=== PATIENT | female | born 1980 | race Caucasian/White ===

== ENCOUNTER 2023-07-06 16:27 | Observation (INO) | payer OTHER, SELFPAY ==
[2023-07-06] VITALS (9 sets, daily range): BP systolic 146–193; BP diastolic 80–108; PULSE 87–122; RESP 18–24; TEMP 36.7–37.1; O2SAT 95–98; BMI 32.3; BMI 31.8
--- NOTE | 2023-07-06 16:36 | XR_ITS ---
PROCEDURE INFORMATION: Exam: XR Chest Exam date and time: 07/06/2023 5:01 PM Age: 42 years old Clinical indication: Cough and shortness of breath; Additional info: Cough, SOA TECHNIQUE: Imaging protocol: Radiologic exam of the chest. Views: 2 views. COMPARISON: No relevant prior studies available. FINDINGS: Lungs: No evidence of acute airspace consolidation. No pulmonary edema. Pleural spaces: Possible trace left pleural effusion. No pneumothorax. Heart/Mediastinum: Cardiomediastinal silouhette is within normal limits. Bones/joints: No evidence of acute osseous abnormality. IMPRESSION: Possible trace left pleural effusion. Otherwise, no evidence of cardiopulmonary disease.
--- NOTE | 2023-07-06 16:39 | HMH.EDGENADL ---
Discharge Plan Disposition Patient Disposition: Home, Self-Care Chief Complaint: Shortness of Breath/Dyspnea Prescriptions Prescriptions: No Action No Known Home Medications Referrals Follow up/Referrals: Babak Agustin MD [Primary Care Provider] - See instructions Clinical Impressions Clinical Impression: Viral respiratory illness Discharge ED Provider: Saroj Strong General Adult HPI General Chief complaint: Shortness of Breath/Dyspnea Stated complaint: SOA, lung pain Time Seen by Provider: 07/06/23 16:32 History of Present Illness HPI narrative: Patient is a 42-year-old with no chronic comorbidities who presents emergency department for evaluation of cough, shortness of breath, chest pressure. History is obtained by patient at bedside. Patient was reportedly seen at outside hospital for knee pain last week however since Tuesday night developed shortness of breath, worsening cough, rhinorrhea. Over the last 24 hours she has developed chest pressure causing her to present here for continued evaluation. No other acute complaints at this time. Related Data Home Medications Medication Instructions Recorded Confirmed No Known Home Medications 07/06/23 07/06/23 Allergies Allergy/AdvReac Type Severity Reaction Status Date / Time Macrolide Antibiotics Allergy Severe Difficulty Verified 07/06/23 15:57 Breathing [facility] Disclaimer: The information contained in this section may have been updated after the patient was seen, as this information can be updated by other users. Medical History (Updated 07/06/23 @ 19:28 by Saroj Strong MD) No significant past medical history Surgical History (Updated 07/06/23 @ 15:52 by Brigida Almeida) H/O tubal ligation Family History (Updated 07/06/23 @ 15:52 by Brigida Almeida) Other No significant family history Social History (Updated 07/06/23 @ 15:52 by Brigida Almeida) Smoking Status: Former smoker quit date: 06/05/23 alcohol intake: never current occupational status: unemployed Travel in the last 8 weeks: None ROS Obtained: Yes Systems reviewed as appropriate & no additional complaints except as documented Physical Exam General General appearance: alert and in no apparent distress Head Head exam: atraumatic and normocephalic Eye Eye exam: Present PERRL and EOMI ENT ENT exam: Present mucous membranes moist Neck Neck exam: Present normal inspection Chest Chest inspection: Present normal inspection and symmetric chest wall rise Respiratory Respiratory exam: Present respiratory distress, wheezes and prolonged expiratory phase Cardiovascular Cardiovascular exam: Present regular rate and normal rhythm Abdominal Exam Abdominal exam: Present soft; Absent tenderness Extremities Exam Extremities exam: Present normal inspection Neurological Exam Neurological exam: Present alert Psychiatric Psychiatric exam: Present normal affect Skin Skin exam: Present warm and dry Medical Decision Making Shemar Inquiry Pt receiving controlled substance: No Vital Signs: 07/06/23 17:07 07/06/23 17:08 07/06/23 17:00 Temperature 98.6 F Temperature Source Oral Pulse Rate 103 H 105 H Pulse Rate [Left Radial] 122 H Respiratory Rate 24 Blood Pressure 189/90 H 163/105 H Blood Pressure [Right Arm] 189/90 H Blood Pressure Mean Blood Pressure Mean [Right Arm] 123 Blood Pressure Source Manual Cuff/ Auscultation Blood Pressure Source [Right Arm] Manual Cuff/ Palpation Blood Pressure Position Sitting 02 Sat by Pulse Oximetry 96 98 98 Oxygen Delivery Method Room Air Room Air 07/06/23 17:31 07/06/23 18:00 07/06/23 18:31 Temperature Temperature Source Pulse Rate 103 H 99 H 104 H Pulse Rate [Left Radial] Respiratory Rate Blood Pressure 146/95 H 151/89 H 179/108 H Blood Pressure [Right Arm] Blood Pressure Mean 123 109 136 Blood Pressure Mean [Right Arm] Blood Pressure
--- NOTE | 2023-07-06 17:19 | PC.NURSE ---
requests pt be placed on continuous albuterol for 1 hour notified RT
[2023-07-06 17:32] LABS: Coronavirus 19, PCR Not Detected (NotDetected); Influenza A, PCR Not Detected (NotDetected); Influenza B, PCR Not Detected (NotDetected)
[2023-07-06 17:42] LABS: VBG HCO3 21.4 mmol/L (23-30); VBG Oxygen Saturation 92.4 % (50-70); VBG PCO2 38.5 mmol/L (35-51); VBG PH 7.36 mmol/L (7.31-7.41); VBG PO2 63.8 mmol/L (28-40); VBG Total CO2 22.6 mmol/L (23-27)
[2023-07-06 17:48] LABS: Basophils % 0.3 % (0.1-2.0); Eosinophils # 0.3 K/mm3 (0.0-0.4); Eosinophils % 3.1 % (0.1-12.0); Hematocrit 48.9 % (37.0-47.0); Hemoglobin 15.6 g/dL (12.2-16.2); Lymphocytes # 1.7 K/mm3 (0.7-4.5); Lymphocytes % 18.8 % (10-50); Mean Corpuscular Hemoglobin 26.5 pg (27.0-31.2); Mean Platelet Volume 8.8 fl (7.4-10.4); Monocytes # 0.7 K/mm3 (0.1-1.0); Monocytes % 7.3 % (1.7-9.3); Neutrophils # 6.5 K/mm3 (1.8-7.8); Neutrophils % 70.6 % (37.0-80.0); Platelet Count 188 K/mm3 (142-424); Red Blood Count 5.89 M/mm3 (4.20-5.40); Red Cell Distribution Width 16.9 % (11.5-17.5); White Blood Count 9.2 K/mm3 (4.8-10.8)
[2023-07-06 17:52] LABS: Chloride 107 mmol/L (98-107); Potassium 3.6 mmoL/L (3.5-5.1); Sodium 140 mmol/L (136-145)
[2023-07-06 17:55] LABS: Alanine Aminotransferase 35 U/L (12-78); Albumin Level 4.3 g/dl (3.5-5.0); Albumin/Globulin Ratio 1.2 (1.1-1.8); Alkaline Phosphatase 76 U/L (38-126); Anion Gap 12.6 mEq/L (5-15); Aspartate Amino Transferase 36 U/L (14-36); Bilirubin,Total 0.2 mg/dl (0.2-1.3); Blood Urea Nitrogen 15 mg/dl (7-17); Carbon Dioxide 24 mmol/L (22.0-30.0); Creatinine Clearance Estimated 117 mL/min (50-200); Estimated Glomerular Filt Rate 69 ml/min (>60); GFR (African American) 83 ML/MIN (>60); Globulin 3.5 g/dL (1.3-3.2); Total Protein,Serum 7.8 g/dl (6.3-8.2)
[2023-07-06 17:56] LABS: Calcium 9.1 mg/dl (8.4-10.2); Glucose 143 mg/dl (74-100)
[2023-07-06 18:05] LABS: NT Pro Brain Natriuretic Pep. 588 pg/mL (0-125)
[2023-07-06 18:10] LABS: Troponin I < 0.01 ng/ml (0.00-0.034)
--- NOTE | 2023-07-06 19:20 | PC.NURSE ---
hand off report given to operations supervisor 2nd shift staff
--- NOTE | 2023-07-06 19:57 | ECG_ITS ---
APPROVED REPORT Exam: Resting ECG HR:86 bpm ECG Measurements Heart Rate [address] 136 P 60 QRSd 98 QRS 50 QT 374 T 52 QTc 417 Conclusion SINUS RHYTHM POSSIBLE RIGHT ATRIAL ENLARGEMENT [0.25mV P-WAVE] NONSPECIFIC ST & T-WAVE ABNORMALITY BORDERLINE ECG UNCONFIRMED REPORT Electronically signed by : Bernardino Sommer MD 07/07/2023 17:18:41
--- NOTE | 2023-07-06 20:21 | EXP.HP ---
History of Present Illness *Admission Date: 07/06/23 *Reason for visit:: SOB, cough and CP *History of present illness: This is a 42-year-old with no known chronic comorbidities, history of heavy smoking who quit last month, who presented to the emergency department for evaluation of cough, shortness of breath, chest pressure, started last 7 days. patient was evaluated at PCP offices and recommended to come to the hospital for further work up. History is obtained by patient at bedside. Over the last 24 hours she has developed chest pressure causing her to present here for continued evaluation. No other acute complaints at this time. In the ED her presenting blood pressure was 179/108. She reported noncompliance with previously recommended hypertensive management. Admitted for treatment and management. Her initial ED troponin is negative. Her ECG identified no acute ST-T changes. [facility] Medical History (Updated 07/07/23 @ 07:43 by Marcus Meyer MD) BMI 32.0-32.9,adult Hypertension Medical non-compliance Tobacco dependence Surgical History H/O tubal ligation Family History Other No significant family history Social History (Updated 07/06/23 @ 20:59 by Alma Cline RN) Smoking Status: Former smoker quit date: 06/05/23 alcohol intake: never current occupational status: unemployed Travel in the last 8 weeks: None Review of Systems Review of Systems Review of systems:: pertinent systems reviewed and negative unless documented below Meds Home Medications and Allergies Home Medications Medication Instructions Recorded Confirmed Type No Known Home Medications 07/06/23 07/07/23 History New Prescriptions to Start Prescriptions: Allergies Allergy/AdvReac Type Severity Reaction Status Date / Time Macrolide Antibiotics Allergy Severe Difficulty Verified 07/06/23 15:57 Breathing Exam Data for Last 24 hours Vital signs and Labs for Last 24 Hours: Temp Pulse Resp BP Pulse Ox O2 Del Method 98.6 F 104 H 24 179/108 H 95 Room Air 07/06/23 17:07 07/06/23 18:31 07/06/23 17:07 07/06/23 18:31 07/06/23 18:31 07/06/23 18:31 Laboratory Results - last 24 hr 07/06/23 16:37: VBG pH 7.36, VBG pCO2 38.5, VBG pO2 63.8 H, VBG HCO3 21.4 L, VBG Total CO2 22.6 L, VBG O2 Saturation 92.4 H, VBG Base Excess -4.0 L 07/06/23 17:21: WBC 9.2, RBC 5.89 H, Hgb 15.6, Hct 48.9 H, MCV 83.0, MCH 26.5 L, MCHC 32.0, RDW 16.9, Plt Count 188, MPV 8.8, Neut % (Auto) 70.6, Lymph % (Auto) 18.8, [place] % (Auto) 7.3, Eos % (Auto) 3.1, Baso % (Auto) 0.3, Neut # (Auto) 6.5, Lymph # (Auto) 1.7, [place] # (Auto) 0.7, Eos # (Auto) 0.3, Baso # (Auto) 0.0, Sodium 140, Potassium 3.6, Chloride 107, Carbon Dioxide 24, Anion Gap 12.6, BUN 15, Creatinine 0.90, Estimated Creat Clear 117, Estimated GFR 69, Est GFR ( Amer) 83, Glucose 143 H, Calcium 9.1, Total Bilirubin 0.2, AST 36, ALT 35, Alkaline Phosphatase 76, Troponin I < 0.01, NT-Pro-B Natriuret Pep 588 H, Total Protein 7.8, Albumin 4.3, Globulin 3.5 H, Albumin/Globulin Ratio 1.2, SARS-CoV-2 (PCR) Not detected, Influenza A Untype (PCR) Not detected, Influenza Type B (PCR) Not detected I & O for Last 24 hours: Intake & Output 07/03/23 07/04/23 07/05/23 07/06/23 23:59 23:59 23:59 23:59 Weight 90.718 kg Constitutional Constitutional: no acute distress, chronically ill appearing, disheveled and cooperative *Routine HEENT Exam Head: Present normocephalic and atraumatic Eye: Present EOMI, PERRL and normal accommodation ENT: Present mucous membranes moist *Routine Neck Exam Neck: Present supple, full ROM and trachea midline *Routine Respiratory Exam Respiratory: Present rhonchi, wheezes, normal respiratory effort, able to speak in complete sentences and symmetric chest movement *Routine Cardiovascular Exam Cardiovascular: Present RRR, Normal S1
--- NOTE | 2023-07-06 20:23 | PC.NURSE ---
notified house worker of admission
--- NOTE | 2023-07-06 20:24 | PC.NURSE ---
OBSERVATION ADMISSION TO 206 WITH DX OF VIRAL PNEUMONIA TO SERVICE OF HOSPITALIST.
--- NOTE | 2023-07-06 20:29 | PC.NURSE ---
pt states she is tired of laying here in this hard bed under this bright light and she aint gonna do it for much longer. RN advised bed is assigned and report will be called soon. RN shut the lights off and readjusted the bed for patient.
--- NOTE | 2023-07-06 20:33 | PC.NURSE ---
called report to jose m cantu on 2nd floor and answered all questions
[2023-07-06 20:40] LABS: Troponin I < 0.01 ng/ml (0.00-0.034)
--- NOTE | 2023-07-06 20:55 | PC.NURSE ---
Patient arrived to floor via wheelchair at 20:45.
[2023-07-06 23:22] LABS: INR 0.94 (0.9-1.1); Prothrombin Time 10.2 seconds (10.1-12.5)
[2023-07-06 23:40] LABS: Troponin I < 0.01 ng/ml (0.00-0.034)
[2023-07-07] VITALS: BP 150/71; PULSE 85; RESP 20; TEMP 36.9; O2SAT 93
[2023-07-07 04:00] VITALS: BP 134/75; PULSE 80; RESP 18; TEMP 36.8; O2SAT 91
--- NOTE | 2023-07-07 06:00 | PC.NURSE ---
Patient is A/O x3. Patient has slept well this shift. Patient has c/o of headache x2. Medicated per MAR with relief. Patient remains on RA with O2 sats 91-98%.
--- NOTE | 2023-07-07 07:54 | EXP.DC.SUM ---
General Admission date:: 07/06/23 Discharge date: 07/07/23 HPI HPI HPI: This is a 42-year-old with no known chronic comorbidities, history of heavy smoking who quit last month, who presented to the emergency department for evaluation of cough, shortness of breath, chest pressure, started last 7 days. patient was evaluated at PCP offices and recommended to come to the hospital for further work up. History is obtained by patient at bedside. Over the last 24 hours she has developed chest pressure causing her to present here for continued evaluation. No other acute complaints at this time. In the ED her presenting blood pressure was 179/108. She reported noncompliance with previously recommended hypertensive management. Admitted for treatment and management. Her initial ED troponin is negative. Her ECG identified no acute ST-T changes. Hospital Course Hospital Course Hospital Course: This is a 42-year-old with history of hypertension and medical noncompliance, history of heavy smoking who quit last month, who presented to the emergency department for evaluation of cough, shortness of breath, chest pressure, started last 7 days. On arrival patient was Saturating appropriately on room air with cough and chest pain/pressure. Chest Xray was done. showing trace of left pleural effusion. troponin are negative, WBC are normal. BNP is elevated with possible rigth atrial enlargement. Patient was placed on neb for wheezing and IV solumedrol was given. Problems addressed as follows: Hypertensive urgency Hypertension Routine blood pressure monitoring Telemetry monitoring Loop diuretic therapy Centrally acting agent ED ECG reviewed Echocardiogram ED BNP noted Trending labs and inflammatory markers Viral URI Pulse oximetry monitoring Oxygen therapy to maintain appropriate oxygen saturations Currently oxygenating appropriately on room air ED chest x-ray reviewed Supportive care with inhalers BMI 32/OHS/HALLIE/COPD overlap History of tobacco dependence Tobacco cessation education Nicotine replacement therapy Nutrition education Calorie appropriate diet Outpatient evaluation for NIPPV therapy with concerns of HALLIE VTE prophylaxis: Lovenox CODE STATUS: Full code The morning after admission the patient voiced disappointment having her morning laboratory studies done so early. She became belligerent with profuse profanity toward nursing staff. She identified wanting to leave. Nursing staff approached her for AMA documentation and she refused to comply and threw the pen at the nurse. I was accompanied by nursing staff to discuss the patient's desire to leave AGAINST MEDICAL ADVICE. supervisor rose grading was present as well. The patient is not intoxicated. She is free from distracting pain and appears to have intact insight, judgment and reason during my evaluation. In my medical opinion the patient has the capacity to make decisions. The patient is also not under any duress to leave the hospital. In this scenario would be battery to subject the patient to treatment against their will. I have voiced my concerns for the patient's health given that a full evaluation and treatment have not occurred. I have discussed the need for continued evaluation and treatment secondary to her diagnoses that present a risk of or morbidity. Risks including but not limited to stroke, heart attack, permanent disability, prolonged hospitalization, prolonged illness and were discussed. The patient insisted on leaving AMA. She voiced taking responsibility for her decision making. Because I have been unable to convince the patient to stay, I offered her the opportunity to ask questions about her condition and to return to the ED with any concerns. I emphasized that leaving AGAINST MEDICAL ADVICE does not preclude returning to the ED for further evaluation. I strongly encouraged the patient to return to any ED at any time particularly with worsening symptoms.
== END 2023-07-07 07:10 | disposition left against medical advice (07) ==
LOC: ER 19:28 → 2ND 20:25
PROVIDERS: Nurse Practitioner Family; Admitting Provider Family Medicine; Emergency Provider Emergency Medicine; PCP Family Medicine; Visit Provider Family Medicine
DX: J18.9 Pneumonia, unspecified organism (principal); I16.0 Hypertensive urgency; I10 Essential (primary) hypertension; I51.7 Cardiomegaly; J90 Pleural effusion, not elsewhere classified; J98.8 Other specified respiratory disorders; B97.89 Other viral agents as the cause of diseases classified elsewhere; Z87.891 Personal history of nicotine dependence; J44.9 Chronic obstructive pulmonary disease, unspecified
CPT/HCPCS: 36415; 71046; 80053; 82803; 83880; 84484; 85025; 85610; 87636; 93005; 93306; 94640; 99285; G0378

== ENCOUNTER 2024-11-12 20:46 | Observation (INO) | payer OTHER, SELFPAY ==
[2024-11-12] VITALS (8 sets, daily range): BP systolic 153–207; BP diastolic 99–119; PULSE 91–113; RESP 16–28; TEMP 37–37.2; O2SAT 95–100; BMI 29.8; BMI 30.9
--- NOTE | 2024-11-12 20:44 | CT_ITS ---
PROCEDURE INFORMATION: Exam: CT Head Without Contrast Exam date and time: 11/12/2024 8:49 PM Age: 43 years old Clinical indication: Stroke-like symptoms; Other: Stroke alert TECHNIQUE: Imaging protocol: Computed tomography of the head without contrast. Radiation optimization: All CT scans at this facility use at least one of these dose optimization techniques: automated exposure control; mA and/or kV adjustment per patient size (includes targeted exams where dose is matched to clinical indication); or iterative reconstruction. Other technique: STROKE PROTOCOL was implemented. COMPARISON: CT HEAD/BRAIN WO CON 11/12/2024 8:49 PM FINDINGS: Brain: Old tiny lacunar pattern infarct in the bilateral anterior limb of internal capsule. See image number 37 of series 3. Brain has an otherwise normal noncontrast CT appearance. There is no regional hypoattenuation or intra/extra-axial hemorrhage. Cerebral ventricles: No ventriculomegaly. Paranasal sinuses: Visualized sinuses are unremarkable. No fluid levels. Mastoid air cells: Visualized mastoid air cells are well aerated. Bones: Unremarkable. No acute fracture. Soft tissues: Unremarkable. IMPRESSION: 1. 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 Unusual for a patient of this age. 2. No acute intracranial hemorrhage or mass-effect. ASSESSMENT: ASPECTS ([place] Stroke Program Early CT Score) is 10.
--- NOTE | 2024-11-12 20:45 | CT_ITS ---
PROCEDURE INFORMATION: Exam: CTA Head With Contrast, Arteriography Exam date and time: 11/12/2024 8:51 PM Age: 43 years old Clinical indication: Stroke-like symptoms; Other: Stroke alert TECHNIQUE: Imaging protocol: Computed tomographic angiography of the head with contrast. Exam focused on the arteries. 3D rendering (Not supervised by radiologist): MIP and/or 3D reconstructed images were created by the technologist. Radiation optimization: All CT scans at this facility use at least one of these dose optimization techniques: automated exposure control; mA and/or kV adjustment per patient size (includes targeted exams where dose is matched to clinical indication); or iterative reconstruction. Contrast material: ISOVUE; Contrast volume: 80 ml; Contrast route: INTRAVENOUS (IV); COMPARISON: CT HEAD/BRAIN WO CON 11/12/2024 8:49 PM FINDINGS: ANTERIOR CIRCULATION: Right internal carotid artery: There is a diffuse caliber change of the bilateral distal internal carotid arteries as they pass through the petrous and cavernous segments dens subsequently turned a more normal caliber at the bilateral ICA terminus. This finding is most prominent at the proximal cavernous segment of both distal internal carotid arteries on axial plane images 380-397 of series 7. At the narrowest point, the estimated diameter of the bilateral ICA is 2.5 mm. Right middle cerebral artery: No occlusion or significant stenosis. No aneurysm. Right anterior cerebral artery: No occlusion or significant stenosis. No aneurysm. Left internal carotid artery: There is a diffuse caliber change of the bilateral distal internal carotid arteries as they pass through the petrous and cavernous segments dens subsequently turned a more normal caliber at the bilateral ICA terminus. This finding is most prominent at the proximal cavernous segment of both distal internal carotid arteries on axial plane images 380-397 of series 7. At the narrowest point, the estimated diameter of the bilateral ICA is 2.5 mm. Left middle cerebral artery: No occlusion or significant stenosis. No aneurysm. Left anterior cerebral artery: No occlusion or significant stenosis. No aneurysm. POSTERIOR CIRCULATION: Right vertebral artery: No occlusion or significant stenosis. No aneurysm. Left vertebral artery: No occlusion or significant stenosis. No aneurysm. Basilar artery: No occlusion or significant stenosis. No aneurysm. Right posterior cerebral artery: No occlusion or significant stenosis. No aneurysm. Left posterior cerebral artery: No occlusion or significant stenosis. No aneurysm. Brain: No definite mass, mass effect, or midline shift. Cerebral ventricles: No ventriculomegaly. Bones/joints: Unremarkable. No acute fracture. Soft tissues: Unremarkable. IMPRESSION: 1. No large vessel occlusion. 2. Diffuse narrowing of the petrous and cavernous segments of the bilateral ICA. This finding can be seen with diffuse arterial spasm or vasculitis. MRI of the brain should be considered to evaluate the brain further.
--- NOTE | 2024-11-12 20:45 | CT_ITS ---
PROCEDURE INFORMATION: Exam: CTA Neck With Contrast Exam date and time: 11/12/2024 8:51 PM Age: 43 years old Clinical indication: Stroke-like symptoms; Other: Stroke alert TECHNIQUE: Imaging protocol: Computed tomographic angiography of the neck with contrast. Exam focused on the cervical segments of the vasculature. 3D rendering (Not supervised by radiologist): MIP and/or 3D reconstructed images were created by the technologist. Radiation optimization: All CT scans at this facility use at least one of these dose optimization techniques: automated exposure control; mA and/or kV adjustment per patient size (includes targeted exams where dose is matched to clinical indication); or iterative reconstruction. Contrast material: ISOVUE; Contrast volume: 80 ml; Contrast route: INTRAVENOUS (IV); COMPARISON: CT ANGIO HEAD 11/12/2024 8:51 PM FINDINGS: Right common carotid artery: No stenosis. No dissection or occlusion. Right internal carotid artery: No stenosis of the extracranial segment. No dissection or occlusion. Right external carotid artery: No occlusion or stenosis of the origin. Left common carotid artery: No stenosis. No dissection or occlusion. Left internal carotid artery: No stenosis of the extracranial segment. No dissection or occlusion. Left external carotid artery: No occlusion or stenosis of the origin. Right vertebral artery: No stenosis. No dissection or occlusion. Left vertebral artery: No stenosis. No dissection or occlusion. Soft tissues: Normal. No significant soft tissue swelling. Bones/joints: No acute fracture. Other findings: Moderate tortuosity of the bilateral internal carotid arteries is seen at the skull base. IMPRESSION: No dissection, stenosis, occlusion or embolus. Also see CTA brain report. REFERENCES: NASCET CRITERIA. The degree of stenosis in the cervical segment of the internal carotid artery is based on NASCET criteria. Normal is no stenosis. Mild is less than 50% stenosis. Moderate is 50-69% stenosis. Severe is 70% to 99% stenosis. Total occlusion is no detectable patent lumen.
--- NOTE | 2024-11-12 20:45 | PC.NURSE ---
Pt arrived via EMS. Straight to CT per Code Stroke. Unable to obtain IV access X2, Dr. Mccabe obtained IV access via US. 20 LAC. This RN, Geraldine RN, Dr. Mccabe, [facility], and RT's bedside.
--- NOTE | 2024-11-12 20:49 | HMH.EDGENADL ---
Discharge Plan Disposition Patient Disposition: Admitted Chief Complaint: Neuro Symptoms/Deficit Prescriptions Prescriptions: No Action No Known Home Medications Clinical Impressions Clinical Impression: Paresthesias, Headache Print Language Print Language: Japanese Discharge ED Provider: Corry Mccabe General Adult HPI General Chief complaint: Neuro Symptoms/Deficit Stated complaint: numbness Time Seen by Provider: 11/12/24 20:46 History of Present Illness HPI narrative: Patient is a 43-year-old female brought in by EMS today for possible stroke. Last known normal was 1929 patient stated that she started having tingling on the left side of her body just did not feel right and while she was with EMS they stated that she is she was having a difficult time talking. Glucose was normal she was hypertensive and tachycardic en route. Patient brought straight to the CT scanner as a stroke alert prehospital. Related Data Home Medications ?Medication ?Instructions ?Recorded ?Confirmed No Known Home Medications 07/06/23 11/12/24 Allergies Allergy/AdvReac Type Severity Reaction Status Date / Time Macrolide Antibiotics Allergy Severe Difficulty Verified 07/06/23 15:57 Breathing [facility] Disclaimer: The information contained in this section may have been updated after the patient was seen, as this information can be updated by other users. Medical History (Updated 11/12/24 @ 22:15 by Corry Mccabe MD) Medical non-compliance BMI 32.0-32.9,adult Tobacco dependence Hypertension Surgical History H/O tubal ligation Family History Other No significant family history Social History (Updated 07/06/23 @ 20:59 by Alma Cline RN) Smoking Status: Current every day smoker alcohol intake: never current occupational status: unemployed Travel in the last 8 weeks: None Have you lived/traveled outside US in past 30 days?: No Contact w/someone who lives/traveled outside US past 30 days?: No Exposure to someone with infectious disease in past 14 days?: No Do you have a fever (greater than 100.4 F or 38 C)?: No Have you tested positive for COVID-19: No Exposed to someone with COVID-19 in past 14 days?: No Do you have a sore throat?: No Do you have a cough?: No Do you have any weakness?: No Do you have any diarrhea?: No Are you experiencing any unusual bleeding?: No Do you have any muscle aches/pain?: No Do you have any abdominal pain?: No Are you experiencing loss of taste or smell?: No Other Medical History Have you received the Flu Vaccine for this season: No Have you received the Pneumonia Vaccine: No ROS Obtained: Yes All systems reviewed & no additional complaints except as documented Physical Exam General General appearance: alert and in no apparent distress Respiratory Respiratory exam: Present normal lung sounds bilaterally Cardiovascular Cardiovascular exam: Present regular rate Neurological Exam Neurological exam: Present alert, oriented X3, CN II-XII intact and motor sensory deficit (Patient has 5 out of 5 strength in left upper and left lower extremity subjectively complains of abnormal sensation in the left side of her body) Medical Decision Making Medical Records Screening: Per USPSTF and CDC recommendations, given the prevalence of disease in our region, it is our hospital?s policy to screen for HIV and viral Hepatitis for all patients aged 18 and over and those with ongoing risk factors. Shemar Inquiry Pt receiving controlled substance: No Vital Signs: 11/12/24 20:46 11/12/24 20:59 11/12/24 21:00 Temperature 98.9 F Temperature Source Oral Pulse Rate 104 H 104 H Pulse Rate [Left] 113 H Respiratory Rate 28 H Blood Pressure 198/119 H 207/106 H Blood Pressure [Right Arm] 207/106 H Blood Pressure Mean [Right Arm] 139 02 Sat by Pulse Oximetry 100 98 99 Oxygen Delivery Method Room Air Room Air Room Air 11/12/24 21:30 11/12/24 22:00 Temperature Temperature Source Pulse Rate 91 H 101 H Pulse Rate [Left] Respiratory Rate Blood Pressure 180/110 H 162/112 H Blood Pressure [Right Arm] Blood Pressure Mean [Right Arm] 02 Sat by Pulse Oximetry 95 99 Oxygen Delivery Method Room Air Lab Data Lab results reviewed: Yes I reviewed the patient's lab results. Lab Results 11/12/24 20:40: C-Reactive Protein 0.5 11/12/24 20:47: WBC 8.1, RBC 4.75, Hgb 12.4, Hct 38.8, MCV 81.7, MCH 26.1 L, MCHC 32.0, RDW 14.7, Plt Count 287, MPV 10.6 H, Neut % (Auto) 70.2, Lymph % (Auto) 21.3, Schuyler % (Auto) 6.0, Eos % (Auto) 2.2, Baso % (Auto) 0.1, Neut # (Auto) 5.7, Lymph # (Auto) 1.7, Schuyler # (Auto) 0.5, Eos # (Auto) 0.2, Baso # (Auto) 0.0, PT 9.0 L, INR 0.80 L, APTT 23.3, Sodium 138, Potassium 4.3, Chloride 104, Carbon Dioxide 26, Anion Gap 12.3, BUN 17, Creatinine 1.00, Estimated Creat Clear 96, Estimated GFR 61, Est GFR ( Amer) 73, Glucose 96, Calcium 9.3, Total Bilirubin 0.3, AST 41 H, ALT 38, Alkaline Phosphatase 92, Troponin I < 0.01, Total Protein 7.3, Albumin 5.2 H, Globulin 2.1, Albumin/Globulin Ratio 2.5 H 11/12/24 20:47 11/12/24 20:47 Orders (Tests/Meds): ED MEDICATIONS Generic Name Dose Route Start Last Admin Trade Name Freq PRN Reason Stop Dose Admin Sodium Chloride 10 ml 11/12/24 20:51 11/12/24 20:53 Sodium Chloride 0.9% 10ml Syr (Rad Only) IV 12/12/24 20:50 10 ml NEEDED PRN Administration Maintain IV Site Discontinued Medications Generic Name Dose Route Start Last Admin Trade Name Freq PRN Reason Stop Dose Admin Acetaminophen 1,000 mg 11/12/24 21:10 11/12/24 21:28 Acetaminophen 1,000mg/100ml Vial IV 11/12/24 21:11 1,000 mg ONCE ONE Administration Diphenhydramine HCl 25 mg 11/12/24 21:10 11/12/24 21:28 Diphenhydramine 50mg/Ml Vial IV 11/12/24 21:11 25 mg ONCE ONE Administration Sodium Chloride 1,000 mls @ 999 mls/hr 11/12/24 21:00 11/12/24 21:10 Sod Chlor 0.9% 1000ml Bag IV 11/12/24 22:00 999 mls/hr .Q1H1M JEFF Administration Iopamidol 80 ml 11/12/24 20:51 11/12/24 20:53 Iopamidol-370 (76%);100ml Bottle IV 11/12/24 20:52 80 ml ONCE ONE Administration Prochlorperazine Edisylate 10 mg 11/12/24 21:10 11/12/24 21:28 Prochlorperazine 10mg/2ml Vial IV 11/12/24 21:11 10 mg ONCE ONE Administration Sodium Chloride 50 ml 11/12/24 20:51 11/12/24 20:53 0.9 % Sodium Chloride 50 Ml Vial IV 11/12/24 20:52 50 ml ONCE ONE Administration ORDERS Category Date Time Status CT angio head Stat Cat Scan 11/12/24 20:[address] angio neck Stat Cat Scan 11/12/24 20:[address] head/brain wo con Stat Cat Scan 11/12/24 20:44 Completed CBC w/Auto Diff [Complete Blood Count Auto Diff] Stat Lab 11/12/24 20:47 Completed CMP [Comprehensive Metabolic Panel] Stat Lab 11/12/24 20:47 Completed CRP [C-Reactive Protein] Stat Lab 11/12/24 20:40 Completed ESR [Erythrocyte Sedimentation Rate] Stat Lab 11/12/24 20:47 Received HIV Combo Routine Lab 11/12/24 20:47 Received Hepatitis C Ab Qual. W/ RFX Routine Lab 11/12/24 20:47 Received PT/PTT Stat Lab 11/12/24 20:47 Completed Trop I [Troponin I] Stat Lab 11/12/24 20:47 Completed Troponin I Q3H Lab 11/12/24 23:47 Ordered Troponin I Q3H Lab 11/13/24 02:47 Ordered UA [Urinalysis and Microscopic] Stat Lab 11/12/24 21:13 Received UDS [Drug Screen,Urine] Stat Lab 11/12/24 21:13 Received Medical Decision Narrative: 43-year-old female with above history and physical she appears very anxious initially was behaving as though she was not able to speak well but then was very articulate with conversation with us in particular telling us specifically that she needed to have an ultrasound-guided IV. Also initially she told EMS that she was having difficult time moving her left upper extremity but her motor exam on my left upper left lower extremity are normal. It is possible these were transient in nature but overall her exam is nonfocal objectively she does have some subjective left-sided sensory abnormalities. I am leaning toward this being panic or anxiety at the moment but cannot rule out TIA/stroke. NIH stroke scale would be 1 right now. Will reassess after initial CT scans are performed. Reassessment 9:[address] scans were performed which I personally interpreted I do not see any evidence of a subarachnoid hemorrhage or intraparenchymal hemorrhage space-occupying lesion or obvious stroke. Radiology read pending. Serial neurologic assessments at this point are normal. Patient does still complain of a headache headache medicines have been ordered at this point. She says her numbness is essentially gone at this point. Possible this is a complex migraine. Will reassess. She is not a candidate for thrombectomy or tPA at this point. Reassessment 1014 CT scans were performed there is some areas of diffuse narrowing but no flow-limiting lesions or obvious stroke there is some old lacunar infarct potentially but no acute ischemic abnormality noted on CT scans per radiology read. There is a concern for possible vasculitis therefore inflammatory markers have been sent and patient will need an MRI. Initially I spoke to hospital medicine who did not feel comfortable keeping the patient here and I called multiple healthcare systems including [facility] all of whom are full. Given the fact that she does not need any neurologic intervention including LVO or tPA [facility] likely would not have excepted this as well hospital medicine called me back and said that they would be happy to keep the patient to get an MRI here patient is aware and agreeable to this plan. Procedures Miscellaneous Procedure Procedure Performed: Ultrasound-guided IV Indication difficult IV access Patient was placed in the supine position was prepped and draped in sterile fashion. 20-gauge 48 mm Angiocath was used with axial and long axis planes on the ultrasound under direct visual guidance. The tip of the needle was observed being inserted directly into the vein itself and catheter was advanced under direct guidance. No significant complications. Critical Care Critical Care Time Critical Care Time: Yes Attestation: On 11/12/24, the high probability of a clinically significant, sudden or life threatening deterioration of the following system(s) required my full and direct attention, intervention and personal management. The time I documented below is in addition to time spent performing reported procedures but includes the following listed in this critical care notation. Total Time Total Critical Care Time: 35
[2024-11-12 20:53] LABS: Basophils % 0.1 % (0.1-2.0); Eosinophils # 0.2 K/mm3 (0.0-0.4); Eosinophils % 2.2 % (0.1-12.0); Hematocrit 38.8 % (37.0-47.0); Hemoglobin 12.4 g/dL (12.2-16.2); Lymphocytes # 1.7 K/mm3 (0.7-4.5); Lymphocytes % 21.3 % (10-50); Mean Corpuscular Hemoglobin 26.1 pg (27.0-31.2); Mean Corpuscular Volume 81.7 fl (81-99); Mean Platelet Volume 10.6 fl (7.4-10.4); Monocytes # 0.5 K/mm3 (0.1-1.0); Neutrophils # 5.7 K/mm3 (1.8-7.8); Neutrophils % 70.2 % (37.0-80.0); Platelet Count 287 K/mm3 (142-424); Red Blood Count 4.75 M/mm3 (4.20-5.40); Red Cell Distribution Width 14.7 % (11.5-17.5); White Blood Count 8.1 K/mm3 (4.8-10.8)
[2024-11-12] MEDS: IOPAMIDOL-370 (76%);100ML BOTTLE 80 ML IV (20:53)
[2024-11-12] MEDS: SODIUM CHLORIDE 0.9% 10ML SYR (RAD ONLY) 10 ML IV (20:53)
[2024-11-12] MEDS: 0.9 % SODIUM CHLORIDE 50 ML VIAL IV (20:53)
--- NOTE | 2024-11-12 20:58 | ECG_ITS ---
APPROVED REPORT Exam: Resting ECG HR:110 bpm ECG Measurements Heart Rate 110 AXES MA 128 P 76 QRSd 102 QRS 81 QT 348 T 1 QTc [address] DEVIATION AND MODERATE T-WAVE ABNORMALITY, CONSIDER INFERIOR ISCHEMIA [-0.1+ mV T-WAVE IN II/aVF] ABNORMAL ECG UNCONFIRMED REPORT Electronically signed by : Zen Mccabe, 11/12/2024 23:27:14
[2024-11-12 20:59] LABS: Albumin Level 5.2 g/dl (3.5-5.0); Chloride 104 mmol/L (98-107)
[2024-11-12 21:00] LABS: Potassium 4.3 mmoL/L (3.5-5.1); Sodium 138 mmol/L (136-145)
[2024-11-12 21:02] LABS: Blood Urea Nitrogen 17 mg/dl (7-17); Creatinine Clearance Estimated 96 mL/min (50-200); Estimated Glomerular Filt Rate 61 ml/min (>60); GFR (African American) 73 ML/MIN (>60)
[2024-11-12 21:03] LABS: Alanine Aminotransferase 38 U/L (12-78); Albumin/Globulin Ratio 2.5 (1.1-1.8); Alkaline Phosphatase 92 U/L (38-126); Anion Gap 12.3 mEq/L (5-15); Aspartate Amino Transferase 41 U/L (14-36); Bilirubin,Total 0.3 mg/dl (0.2-1.3); Calcium 9.3 mg/dl (8.4-10.2); Carbon Dioxide 26 mmol/L (22.0-30.0); Globulin 2.1 g/dL (1.3-3.2); Glucose 96 mg/dl (74-100); Total Protein,Serum 7.3 g/dl (6.3-8.2)
[2024-11-12] MEDS: 0.9 % SODIUM CHLORIDE 1000ML 1,000 ML 999 ML IV (21:10)
[2024-11-12 21:16] LABS: Troponin I < 0.01 ng/ml (0.00-0.034)
[2024-11-12 21:22] LABS: Microscopic, Urine URINE MICROSCOPIC (MICROSCOPIC)
[2024-11-12 21:23] LABS: Activated Partial Thrombo Time 23.3 seconds (22.5-28.5)
[2024-11-12] MEDS: PROCHLORPERAZINE 10MG/2ML VIAL 10 MG IV (21:28)
[2024-11-12] MEDS: diphenhydrAMINE 50MG/ML VIAL 25 MG IV (21:28)
[2024-11-12] MEDS: ACETAMINOPHEN 1,000MG/100ML VIAL 1000 MG IV (21:28)
--- NOTE | 2024-11-12 21:37 | PC.NURSE ---
attempted to call [facility], they are on divert and cannot take any pts at this time.
[2024-11-12 21:49] LABS: C-Reactive Protein 0.5 mg/L (0-4)
[2024-11-12 21:51] LABS: Appearance,Urine CLEAR (Clear); Bilirubin,Urine Negative (Negative); Blood, Urine Negative (Negative); Color,Urine YELLOW (Yellow); Glucose,Urine (UA) Negative (Negative); Ketones,Urine Negative (Negative); Leukocyte Esterase,Urine Negative (Negative); Nitrate,Urine Negative (Negative); Protein,Urine Negative (Negative); Specific Gravity, Urine 1.015 (1.005-1.030); Urobilinogen,Urine 0.2 EU/dl (0.2)
[2024-11-12 22:15] LABS: Amphetamine/Metha Screen,Urine Negative ng/ml (<1000)
[2024-11-12 22:16] LABS: Barbiturates Screen,Urine Negative ng/ml (<200); Benzodiazepines Screen,Urine Negative ng/ml (<200)
--- NOTE | 2024-11-12 22:16 | PC.NURSE ---
Tried to call report, no answer.
[2024-11-12 22:17] LABS: Cannabinoid Screen,Urine Positive ng/ml (<50)
[2024-11-12 22:19] LABS: Phencyclidine Screen,Urine Negative ng/ml (<25)
[2024-11-12 22:22] LABS: Cocaine Screen,Urine Negative ng/ml (<300); Methadone Screen,Urine Negative ng/ml (<300)
[2024-11-12 22:23] LABS: Opiate Screen,Urine Negative ng/ml (<300)
[2024-11-12 22:26] LABS: HIV Combo NEGATIVE (Negative)
--- NOTE | 2024-11-12 22:26 | PC.NURSE ---
Report called to [facility]
[2024-11-12 22:35] LABS: Hepatitis C Ab Qual. W/ RFX NEGATIVE (Negative)
--- NOTE | 2024-11-12 22:45 | PC.NURSE ---
patient on floor at [id number]
[2024-11-12 22:51] LABS: Bacteria,Urine 1+ /lpf
[2024-11-12 23:00] LABS: Erythrocyte Sedimentation Rate 11 mm/hr (0-20)
[2024-11-13] VITALS: BP 183/96; PULSE 73; RESP 16; TEMP 36.7; O2SAT 96
[2024-11-13 00:34] LABS: Troponin I < 0.01 ng/ml (0.00-0.034)
--- NOTE | 2024-11-13 01:36 | P.HP_ITS ---
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 She was last known to be at her baseline at 19:30 while playing with her grandson when she suddenly experienced complete left-sided numbness and weakness. She attempted to speak but was unable to form words, which caused significant distress. She describes an episode of ?the worst headache of my life? occurring at the same time as her neurological symptoms. EMS was activated, and en route, she was hypertensive and tachycardic, but her blood glucose was normal. By the time she arrived at the emergency department, her symptoms had significantly improved. On initial examination, she was alert and oriented, speaking normally, and had full strength in all extremities; however, she continued to report residual left-sided paresthesia and a mild headache. NIH Stroke Scale at presentation was 1. Given the transient nature of her symptoms, a stroke alert was activated, and the patient was taken directly to CT imaging. CT head was performed emergently and showed no evidence of acute ischemic stroke, hemorrhage, or mass effect, although there were possible old lacunar infarcts. Subsequent CT angiography of the head and neck showed areas of diffuse narrowing but no significant flow-limiting lesions. Laboratory workup revealed a normal white blood cell count of 8.1, slightly elevated AST at 41, and a low INR of 0.80, but otherwise unremarkable findings, including a CRP of 0.5. Serial neurological assessments have remained normal, though she continues to report mild headache and some residual left-sided sensory changes. Given the transient nature of her symptoms and absence of radiologic evidence of large vessel occlusion, she is not a candidate for thrombolytics or thrombectomy. Differential considerations include transient ischemic attack, complex migraine, or a vasculitic process, given her history of rheumatoid arthritis and imaging findings suggestive of diffuse vascular narrowing. Inflammatory markers have been ordered, and an MRI is planned for further evaluation. [facility] Disclaimer: The information contained in this section may have been updated after the patient was seen, as this information can be updated by other users. Medical History Rheumatoid arthritis Medical non-compliance BMI 32.0-32.9,adult Tobacco dependence Hypertension Surgical History H/O tubal ligation Family History Other No significant family history Social History Smoking Status: Current every day smoker alcohol intake: never current occupational status: unemployed Travel in the last 8 weeks: None Have you lived/traveled outside US in past 30 days?: No Contact w/someone who lives/traveled outside US past 30 days?: No Exposure to someone with infectious disease in past 14 days?: No Do you have a fever (greater than 100.4 F or 38 C)?: No Have you tested positive for COVID-19: No Exposed to someone with COVID-19 in past 14 days?: No Do you have a sore throat?: No Do you have a cough?: No Do you have any weakness?: No Do you have any diarrhea?: No Are you experiencing any unusual bleeding?: No Do you have any muscle aches/pain?: No Do you have any abdominal pain?: No Are you experiencing loss of taste or smell?: No Other Medical History Have you received the Flu Vaccine for this season: No Have you received the Pneumonia Vaccine: No Review of Systems Review of Systems Review of systems (narrative): 13 point review of systems negative outside HPI Meds Home Medications and Allergies Home Medications ?Medication ?Instructions ?Recorded ?Confirmed ?Type irbesartan 75 mg tablet 75 mg PO DAILY 30 days #30 tabs 11/13/24 Rx New Prescriptions to Start Prescriptions: bingesZen Howard Allergies Allergy/AdvReac Type Severity Reaction Status Date / Time Macrolide Antibiotics Allergy Severe Difficulty Verified 07/06/23 15:57 Breathing Exam Data for Last 24 hours Vital signs and Labs for Last 24 Hours: Temp Pulse Resp BP Pulse Ox O2 Del Method 98.6 F 98 H 24 153/99 H 98 Room Air 11/12/24 23:18 11/12/24 23:18 11/12/24 23:18 11/12/24 23:18 11/12/24 23:10 11/12/24 23:18 Laboratory Results - last 24 hr 11/12/24 20:40: C-Reactive Protein 0.5 11/12/24 20:47: WBC 8.1, RBC 4.75, Hgb 12.4, Hct 38.8, MCV 81.7, MCH 26.1 L, MCHC 32.0, RDW 14.7, Plt Count 287, MPV 10.6 H, Neut % (Auto) 70.2, Lymph % (Auto) 21.3, Grant % (Auto) 6.0, Eos % (Auto) 2.2, Baso % (Auto) 0.1, Neut # (Auto) 5.7, Lymph # (Auto) 1.7, Grant # (Auto) 0.5, Eos # (Auto) 0.2, Baso # (Auto) 0.0, ESR 11, PT 9.0 L, INR 0.80 L, APTT 23.3, Sodium 138, Potassium 4.3, Chloride 104, Carbon Dioxide 26, Anion Gap 12.3, BUN 17, Creatinine 1.00, Estimated Creat Clear 96, Estimated GFR 61, Est GFR ( Amer) 73, Glucose 96, Calcium 9.3, Total Bilirubin 0.3, AST 41 H, ALT 38, Alkaline Phosphatase 92, Troponin I < 0.01, Total Protein 7.3, Albumin 5.2 H, Globulin 2.1, Albumin/Globulin Ratio 2.5 H, HCV Ab DONNA w/Rflx PCR Qn Negative, HIV Ag/Ab Combo Qual Negative 11/12/24 21:13: Urine Color Yellow, Urine Appearance Clear, Urine pH 7.0, Ur Specific [place] 1.015, Urine Protein Negative, Urine Glucose (UA) Negative, Urine Ketones Negative, Urine Blood Negative, Urine Nitrate Negative, Urine Bilirubin Negative, Urine Urobilinogen 0.2, Ur Leukocyte Esterase Negative, Urine WBC 3-5, Ur Squamous Epith Cells 5-10, Urine Bacteria 1+, Urine Opiates Screen Negative, Urine Methadone Screen Negative, Ur Barbituates Screen Negative, Ur Phencyclidine Scrn Negative, Ur Amphetamines Screen Negative, U Benzodiazepines Scrn Negative, Urine Cocaine Screen Negative, U Marijuana (THC) Screen Positive H 11/12/24 23:56: Troponin I < 0.01 I & O for Last 24 hours: Intake & Output 11/10/24 11/11/24 11/12/24 11/13/24 23:59 23:59 23:59 23:59 Output Total 0 / 0 Balance 0 / 0 Weight 87.271 kg Constitutional Constitutional: no acute distress *Routine HEENT Exam Head: Present normocephalic Eye: Present EOMI and PERRL ENT: Present mucous membranes moist *Routine Neck Exam Neck: Present supple; Absent lymphadenopathy *Routine Respiratory Exam Respiratory: Present CTA bilaterally *Routine Cardiovascular Exam Cardiovascular: Present RRR *Routine Abdominal Exam Abdominal: Present soft and normoactive bowel sounds; Absent tenderness *Routine Rectal Exam Rectal:: deferred *Routine Genitalia Exam Genitalia:: deferred *Routine Extremities Exam Extremities: Absent cyanosis, clubbing or edema *Routine Skin Exam Skin: Present warm; Absent rash *Routine Neurological Exam Neurological: Present alert and oriented X3 Detailed Eye Exam Comments: Clouding and blindness from traumatic injury in right eye Assessment and Plan *Assessment and plan (1) TIA (transient ischemic attack): Status: Acute Category: Medical Code(s): G45.9 - Transient cerebral ischemic attack, unspecified (2) Headache: Status: Acute Category: Medical Code(s): R51.9 - Headache, unspecified (3) Paresthesias: Status: Acute Category: Medical Code(s): R20.2 - Paresthesia of skin (4) Hypertensive urgency: Status: Acute Category: Medical Code(s): I16.0 - Hypertensive urgency (5) Former smoker: Status: Acute Category: Social Hx Code(s): Z87.891 - Personal history of nicotine dependence Plan Medical Decision Making: This 43-year-old female presented with acute left-sided paresthesia, transient weakness, and aphasia, all of which have resolved. CT imaging showed no intracranial hemorrhage or acute stroke, while CTA demonstrated diffuse vascular narrowing without a flow-limiting lesion. The primary concerns are transient ischemic attack, complex migraine, or an underlying vasculitic process. She is not a candidate for thrombolytics or thrombectomy. Further evaluation with MRI is planned to assess for subtle ischemic changes or inflammatory involvement. She has been started on aspirin for stroke prophylaxis, and her blood pressure will be carefully monitored and controlled. Additional workup, including inflammatory markers, has been initiated to assess for vasculitis, and further management will be guided by MRI findings. Transient Ischemic Attack (TIA) versus complex migraine * MRI brain with and without contrast will be performed to assess for acute ischemia and small vessel disease. * Neurology will be consulted for further evaluation and recommendations regarding secondary stroke prevention. * Antiplatelet therapy with aspirin 325 mg will be initiated unless contraindicated. * Blood pressure will be closely monitored and treated cautiously to prevent further cerebrovascular events. * Evaluate for other stroke risk factors, including hypercoagulability or cardiac embolism, with EKG and telemetry monitoring. * The transient nature of her symptoms, accompanied by a severe headache, suggests the possibility of a complex migraine. * Continue headache management with IV fluids and analgesics (acetaminophen and/or NSAIDs). * If symptoms persist or worsen, consider migraine-specific therapy such as triptans (if no contraindications). Vasculitis (possible) * History of RA not on treatment * Given her history of untreated rheumatoid arthritis and CTA findings of diffuse vascular narrowing, inflammatory markers (ESR, CRP, ALICE) have been sent. * MRI/MRA will be evaluated for any signs of vasculitic involvement of the cerebral vasculature. * If suspicion remains, Rheumatology will be consulted for further evaluation and possible initiation of disease-modifying therapy. Hypertension * Elevated blood pressure at presentation may be reactive but requires close monitoring. * Goal will be to gently lower blood pressure if persistently elevated, avoiding abrupt decreases. * If hypertension remains uncontrolled, consider initiation or adjustment of antihypertensive therapy. Right Eye Blindness (Chronic) * No acute visual complaints or changes beyond her baseline blindness. * No intervention needed at this time. Disposition * Admit for continued neurological monitoring, MRI evaluation, and inflammatory workup. * Continue aspirin for stroke prevention unless contraindications arise. * Monitor blood pressure, serial neurological exams, and headache response to treatment. * Re-evaluate after MRI and inflammatory markers for further diagnostic guidance. * Neurology and potentially Rheumatology likely needed follow-up for ongoing management. Rounded on patient after nurse practitioner. Personally examined and interviewed patient. Agree with exam findings and care plan as documented. Going for MRI in the morning. Repeat CBC, CMP, magnesium ordered for the morning. Serial neuroexams.
[2024-11-13] MEDS: KETOROLAC 30MG/ML VIAL 15 MG IV (01:43)
[2024-11-13 03:30] LABS: Troponin I < 0.01 ng/ml (0.00-0.034)
--- NOTE | 2024-11-13 03:34 | PC.NURSE ---
Pt. admitted to med/surg this shift. Pt. is alert and orientated x 4. Pt. c/o mild tingling/numbness to left arm and leg. No facial droop. Pt. c/o headache /, medicated with Toradol for pain. Toradol was effective for some pain relief. Pt. up to bathroom , assist x 1. Pt. sleeping well. Refused 0300 blood draw for Troponin, did consent to blood draw from IV site. Pt. was a difficult stick in the ED, IV was placed with ultrasound. Pt. to have an MRI today. VSS, Personal items and call marte in reach.
[2024-11-13 03:44] VITALS: BP 173/89; PULSE 62; RESP 16; TEMP 36.6; O2SAT 97; BMI 33.0
[2024-11-13] MEDS: HYDRALAZINE 20MG/ML VIAL 10 MG IV (03:53)
[2024-11-13] MEDS: ASPIRIN 325MG TABLET 325 MG PO (05:34)
[2024-11-13 08:00] VITALS: BP 190/107; PULSE 89; RESP 16; TEMP 37.1; O2SAT 99
--- NOTE | 2024-11-13 08:03 | MR_ITS ---
FINAL REPORT CLINICAL HISTORY: PARASTHESIAS COMPARISON: None FINDINGS: Multi planar MR imaging was obtained through the brain without contrast. The midline structures appear intact. There is no evidence of Chiari malformation. On T2 and flair axial images the brain parenchyma is homogeneous. On diffusion-weighted images there is no evidence of restricted diffusion. The visualized paranasal sinuses demonstrate minimal lobular periosteal thickening in the inferior sphenoid sinus. The seventh and eighth nerve root complexes are intact. IMPRESSION: Essentially unremarkable nonenhanced brain MRI. Reviewed, Interpreted and Dictated by Srinivas Paris MD Transcribed by Dary Traore Authenticated and [facility]
--- NOTE | 2024-11-13 08:52 | HMH.PTEV ---
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 She was last known to be at her baseline at 19: 30 while playing with her grandson when she suddenly experienced complete left- sided numbness and weakness. She attempted to speak but was unable to form words, which caused significant distress. She describes an episode of ? the worst headache of my life? occurring at the same time as her neurological symptoms. EMS was activated, and en route, she was hypertensive and tachycardic, but her blood glucose was normal. By the time she arrived at the emergency department, her symptoms had significantly improved. On initial examination, she was alert and oriented, speaking normally, and had full strength in all extremities; however, she continued to report residual left-sided paresthesia and a mild headache. NIH Stroke Scale at presentation was 1. Given the transient nature of her symptoms, a stroke alert was activated, and the patient was taken directly to CT imaging. CT head was performed emergently and showed no evidence of acute ischemic stroke, hemorrhage, or mass effect, although there were possible old lacunar infarcts. Subsequent CT angiography of the head and neck showed areas of diffuse narrowing but no significant flow-limiting lesions. Laboratory workup revealed a normal white blood cell count of 8.1, slightly elevated AST at 41, and a low INR of 0.80, but otherwise unremarkable findings, including a CRP of 0.5. Serial neurological assessments have remained normal, though she continues to report mild headache and some residual left-sided sensory changes. Given the transient nature of her symptoms and absence of radiologic evidence of large vessel occlusion, she is not a candidate for thrombolytics or thrombectomy. Differential considerations include transient ischemic attack, complex migraine, or a vasculitic process, given her history of rheumatoid arthritis and imaging findings suggestive of diffuse vascular narrowing. Inflammatory markers have been ordered, and an MRI is planned for further evaluation . Subjective Subjective Pt reports she lives alone in a single-story home and is IND with all ADLs and mobility. Pt still drives. No prior AD use. New diagnosis of cancer in past 12 No months? Rehab PT IP Eval Objective Appearance Patient Behavior Appropriate,Cooperative Patient Orientation Person,Situation Difficulty following instructions none Speech Pattern Clear Ambulation Patient Able to Ambulate Yes Ambulation Observation IP General Gait Pattern Observation No Deviations/Normal Ambulation Distance (feet) 20 Ambulation Assistive Device None Ambulation Ability Independent,Supervision/Stand by Balance Ability to Arise Able, uses arms to help Sitting Balance Steady, safe Standing Balance Steady, wide stance Dynamic Sitting Balance Ability Normal Dynamic Standing Balance Ability Good Transfers Bed Transfer Ability Independent Sit to Stand Bed Transfer Ability Independent Rehab PT IP prob,goals,plan Problems Date of Evaluation: 11/13/24 Rehab Potential Rehab Potential Innapropriate for Skilled Therapy Discharge Plan PT Discharge Plan Pt is at her baseline/IND with functional mobility. Pt not appropriate for skilled acute care PT at this time. Eval Complexity Eval Charge Codes 81246 - Moderate Complexity PHYSICIAN CERTIFICATION: I certify the specified therapy services for Batool Raymundo are required, authorized, and reviewed every 30 days.
--- NOTE | 2024-11-13 09:38 | HMH.OTEV ---
OT Inpatient Evaluation Rehab OT IP Evaluation Start: 11/12/24 23:01 Freq: ONCE Status: Active Protocol: Document 11[facility]13/24 09[facility] (Rec: 11/13/24 09:38 [facility] [id number]) Rehab OT IP Assessment Subjective History Pt oriented x 3 on arrival. Pt agreeable to engage in therapy evaluation. Pt admitted on 11/12/24 due to TIA/ stroke like syptoms. 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 She was last known to be at her baseline at 19: 30 while playing with her grandson when she suddenly experienced complete left- sided numbness and weakness. She attempted to speak but was unable to form words, which caused significant distress. She describes an episode of ? the worst headache of my life? occurring at the same time as her neurological symptoms. EMS was activated, and en route, she was hypertensive and tachycardic, but her blood glucose was normal. By the time she arrived at the emergency department, her symptoms had significantly improved. On initial examination, she was alert and oriented, speaking normally, and had full strength in all extremities; however, she continued to report residual left-sided paresthesia and a mild headache. NIH Stroke Scale at presentation was 1. Given the transient nature of her symptoms, a stroke alert was activated, and the patient was taken directly to CT imaging. CT head was performed emergently and showed no evidence of acute ischemic stroke, hemorrhage, or mass effect, although there were possible old lacunar infarcts. Subsequent CT angiography of the head and neck showed areas of diffuse narrowing but no significant flow-limiting lesions. Laboratory workup revealed a normal white blood cell count of 8.1, slightly elevated AST at 41, and a low INR of 0.80, but otherwise unremarkable findings, including a CRP of 0.5. Serial neurological assessments have remained normal, though she continues to report mild headache and some residual left-sided sensory changes. Given the transient nature of her symptoms and absence of radiologic evidence of large vessel occlusion, she is not a candidate for thrombolytics or thrombectomy. Differential considerations include transient ischemic attack, complex migraine, or a vasculitic process, given her history of rheumatoid arthritis and imaging findings suggestive of diffuse vascular narrowing. Inflammatory markers have been ordered, and an MRI is planned for further evaluation Subjective Prior to being in the hospital , pt lived alone. Pt claims she is normally independent with all ADLs and IADLs. Pt also still works and drives. Objective Patient Orientation Person,Place,Birthday Right Upper Extremity Gross ROM WFL Left Upper Extremity Gross ROM WFL Bed Mobility bed mobility-scooting,bed mobility - supine/sit Assist Level Supervision/Stand by Transfer Training Sit/Stand Transfer Assist Level Supervision/Stand by Chair Transfer Ability Supervision/Stand by Chair Transfer Technique Sit to/from Ambulatory Lower Body Dressing Ability Standby Assistance Performing Toilet Hygiene Ability Standby Assistance Overall Commode/Toilet Transfer Ability Standby Assistance Commode/Toilet Transfer Technique Sit to/from Ambulatory Rehab OT IP prob,goals,plan Problems Date of Evaluation: 11/13/24 Rehab Potential Rehab Potential Innapropriate for Skilled Therapy Discharge Plan OT Discharge Plan Pt appears to be at her baseline at this time with functional transfers and ADL independence. Pt can return home once she is medically stable per physician. Eval Complexity Eval Charge Codes 28997 - Moderate Complexity PHYSICIAN CERTIFICATION: I certify the specified therapy services for Batool Raymundo are required, authorized, and reviewed every 30 days.
[2024-11-13] MEDS: ENOXAPARIN 40MG/0.4ML SYRINGE 40 MG SUBCUT (09:46)
[2024-11-13] MEDS: IRBESARTAN 75MG TABLET 75 MG PO (09:46)
--- NOTE | 2024-11-13 14:48 | P.DS_ITS ---
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 She was last known to be at her baseline at 19:30 while playing with her grandson when she suddenly experienced complete left-sided numbness and weakness. She attempted to speak but was unable to form words, which caused significant distress. She describes an episode of ?the worst headache of my life? occurring at the same time as her neurological symptoms. EMS was activated, and en route, she was hypertensive and tachycardic, but her blood glucose was normal. By the time she arrived at the emergency department, her symptoms had significantly improved. On initial examination, she was alert and oriented, speaking normally, and had full strength in all extremities; however, she continued to report residual left-sided paresthesia and a mild headache. NIH Stroke Scale at presentation was 1. Given the transient nature of her symptoms, a stroke alert was activated, and the patient was taken directly to CT imaging. CT head was performed emergently and showed no evidence of acute ischemic stroke, hemorrhage, or mass effect, although there were possible old lacunar infarcts. Subsequent CT angiography of the head and neck showed areas of diffuse narrowing but no significant flow-limiting lesions. Laboratory workup revealed a normal white blood cell count of 8.1, slightly elevated AST at 41, and a low INR of 0.80, but otherwise unremarkable findings, including a CRP of 0.5. Serial neurological assessments have remained normal, though she continues to report mild headache and some residual left-sided sensory changes. Given the transient nature of her symptoms and absence of radiologic evidence of large vessel occlusion, she is not a candidate for thrombolytics or thrombectomy. Differential considerations include transient ischemic attack, complex migraine, or a vasculitic process, given her history of rheumatoid arthritis and imaging findings suggestive of diffuse vascular narrowing. Inflammatory markers have been ordered, and an MRI is planned for further evaluation. Hospital Course Hospital Course Hospital Course: This 43-year-old female presented with acute left-sided paresthesia, transient weakness, and aphasia, all of which have resolved. CT imaging showed no intracranial hemorrhage or acute stroke, while CTA demonstrated diffuse vascular narrowing without a flow-limiting lesion. The primary concerns are transient ischemic attack, complex migraine, or an underlying vasculitic process. She is not a candidate for thrombolytics or thrombectomy. Further evaluation with MRI is planned to assess for subtle ischemic changes or inflammatory involvement. She has been started on aspirin for stroke prophylaxis, and her blood pressure will be carefully monitored and controlled. Additional workup, including inflammatory markers, has been initiated to assess for vasculitis, and further management will be guided by MRI findings. Patient's symptoms resolved by morning. MRI did not show any acute findings. Given resolution of symptoms and normal MRI, differential includes complex migraine, side effect of medication, anxiety/neuropsychiatric symptoms, somatizations syndrome, TIA. Stable to discharge home. Will address blood pressure. Needs close follow-up with PCP for further management and evaluation. Problems addressed as follows: Transient Ischemic Attack (TIA) versus complex migraine -Patient presented with left-sided numbness. Unclear etiology. CT obtained on admission that was negative. MRI obtained the following morning, patient's symptoms had resolved by this time. Neuroexam back to normal with no sensory or motor deficits. MRI showing no acute abnormalities. Essentially normal. Blood pressure severely elevated however. Initiated on irbesartan 75 mg daily to improve blood pressure control. In the setting of normal MRI, will hold on antiplatelet therapy at this time. Recommend close follow-up with PCP for further evaluation and management. Vasculitis (possible) -Would benefit from reevaluation of her RA and further evaluation of autoimmune antibodies. ESR normal at 11, CRP normal at 0.5, and a panel obtained, still pending at discharge. Hypertension -Elevated on admission. Initiate irbesartan 75 mg daily. Close follow-up with PCP for further management. Goal blood pressure less than 140/90 Right Eye Blindness (Chronic) - No acute visual complaints or changes beyond her baseline blindness. No intervention needed at this time. Extensive discussion with patient about her findings on day of discharge. Discussed follow-up plan. Stable to discharge home. Total time spent on discharge 32 minutes in counseling, documentation, chart review, and direct care with patient. Exam Data for Last 24 hours Vital signs and Labs for Last 24 Hours: Temp Pulse Resp BP Pulse Ox O2 Del Method 98.7 F 89 16 190/107 H 99 Room Air 11/13/24 08:00 11/13/24 08:00 11/13/24 08:00 11/13/24 08:00 11/13/24 08:00 11/13/24 13:00 Laboratory Results - last 24 hr 11/12/24 20:40: C-Reactive Protein 0.5 11/12/24 20:47: WBC 8.1, RBC 4.75, Hgb 12.4, Hct 38.8, MCV 81.7, MCH 26.1 L, MCHC 32.0, RDW 14.7, Plt Count 287, MPV 10.6 H, Neut % (Auto) 70.2, Lymph % (Auto) 21.3, [place] % (Auto) 6.0, Eos % (Auto) 2.2, Baso % (Auto) 0.1, Neut # (Auto) 5.7, Lymph # (Auto) 1.7, [place] # (Auto) 0.5, Eos # (Auto) 0.2, Baso # (Auto) 0.0, ESR 11, PT 9.0 L, INR 0.80 L, APTT 23.3, Sodium 138, Potassium 4.3, Chloride 104, Carbon Dioxide 26, Anion Gap 12.3, BUN 17, Creatinine 1.00, Estimated Creat Clear 96, Estimated GFR 61, Est GFR ( Amer) 73, Glucose 96, Calcium 9.3, Total Bilirubin 0.3, AST 41 H, ALT 38, Alkaline Phosphatase 92, Troponin I < 0.01, Total Protein 7.3, Albumin 5.2 H, Globulin 2.1, Albumin/Globulin Ratio 2.5 H, HCV Ab DONNA w/Rflx PCR Qn Negative, HIV Ag/Ab Combo Qual Negative 11/12/24 21:13: Urine Color Yellow, Urine Appearance Clear, Urine pH 7.0, Ur Specific [place] 1.015, Urine Protein Negative, Urine Glucose (UA) Negative, Urine Ketones Negative, Urine Blood Negative, Urine Nitrate Negative, Urine Bilirubin Negative, Urine Urobilinogen 0.2, Ur Leukocyte Esterase Negative, Urine WBC 3-5, Ur Squamous Epith Cells 5-10, Urine Bacteria 1+, Urine Opiates Screen Negative, Urine Methadone Screen Negative, Ur Barbituates Screen Negative, Ur Phencyclidine Scrn Negative, Ur Amphetamines Screen Negative, U Benzodiazepines Scrn Negative, Urine Cocaine Screen Negative, U Marijuana (THC) Screen Positive H 11/12/24 23:56: Troponin I < 0.01 11/13/24 02:53: Troponin I < 0.01 I & O for Last 24 hours: Intake & Output 11/10/24 11/11/24 11/12/24 11/13/24 23:59 23:59 23:59 23:59 Intake Total 1240 / 1240 Output Total 0 / 0 0 / 0 Balance 0 / 1240 1240 / 1240 Weight 87.271 kg 93.304 kg Constitutional Constitutional: no acute distress, obese, chronically ill appearing and coopera tive *Routine HEENT Exam Head: Present normocephalic Eye: Present EOMI; Absent PERRL ENT: Present mucous membranes moist Comments: Scleral scarring of right eye. *Routine Neck Exam Neck: Present supple; Absent lymphadenopathy *Routine Respiratory Exam Respiratory: Present CTA bilaterally; Absent rhonchi, wheezes or crackles *Routine Cardiovascular Exam Cardiovascular: Present RRR *Routine Abdominal Exam Abdominal: Present soft and normoactive bowel sounds; Absent tenderness *Routine Rectal Exam Patient deferred: visual exam *Routine Exam Patient deferred: external exam *Routine Extremities Exam Extremities: Absent cyanosis, clubbing or edema *Routine Skin Exam Skin: Present intact and warm; Absent rash *Routine Neurological Exam Neurological: Present alert, oriented X3, CN II-XII intact and moving all extremities; Absent sensory deficit, motor deficit or altered mental status Routine Psychiatric Exam Psychiatric: Present anxious Results Data Completed and Pending Labs on day of discharge: Labs from last 24 hours 11/13/24 11/12/24 11/12/24 02:53 23:56 21:13 WBC RBC Hgb Hct MCV MCH MCHC RDW Plt Count MPV Neut % (Auto) Lymph % (Auto) [place] % (Auto) Eos % (Auto) Baso % (Auto) Neut # (Auto) Lymph # (Auto) [place] # (Auto) Eos # (Auto) Baso # (Auto) ESR PT INR APTT Sodium Potassium Chloride Carbon Dioxide Anion Gap BUN Creatinine Estimated Creat Clear Estimated GFR Est GFR ( Amer) Glucose Calcium Total Bilirubin AST ALT Alkaline Phosphatase Troponin I < 0.01 < 0.01 C-Reactive Protein Total Protein Albumin Globulin Albumin/Globulin Ratio Urine Color Yellow Urine Appearance Clear Urine pH 7.0 Ur Specific [place] 1.015 Urine Protein Negative Urine Glucose (UA) Negative Urine Ketones Negative Urine Blood Negative Urine Nitrate Negative Urine Bilirubin Negative Urine Urobilinogen 0.2 Ur Leukocyte Esterase Negative Urine WBC 3-5 Ur Squamous Epith Cells 5-10 Urine Bacteria 1+ Urine Opiates Screen Negative Urine Methadone Screen Negative Ur Barbituates Screen Negative Ur Phencyclidine Scrn Negative Ur Amphetamines Screen Negative U Benzodiazepines Scrn Negative Urine Cocaine Screen Negative U Marijuana (THC) Screen Positive H HCV Ab DONNA w/Rflx PCR Qn HIV Ag/Ab Combo Qual 11/12/24 11/12/24 20:47 20:40 WBC 8.1 RBC 4.75 Hgb 12.4 Hct 38.8 MCV 81.7 MCH 26.1 L MCHC 32.0 RDW 14.7 Plt Count 287 MPV 10.6 H Neut % (Auto) 70.2 Lymph % (Auto) 21.3 [place] % (Auto) 6.0 Eos % (Auto) 2.2 Baso % (Auto) 0.1 Neut # (Auto) 5.7 Lymph # (Auto) 1.7 [place] # (Auto) 0.5 Eos # (Auto) 0.2 Baso # (Auto) 0.0 ESR 11 PT 9.0 L INR 0.80 L APTT 23.3 Sodium 138 Potassium 4.3 Chloride 104 Carbon Dioxide 26 Anion Gap 12.3 BUN 17 Creatinine 1.00 Estimated Creat Clear 96 Estimated GFR 61 Est GFR ( Amer) 73 Glucose 96 Calcium 9.3 Total Bilirubin 0.3 AST 41 H ALT 38 Alkaline Phosphatase 92 Troponin I < 0.01 C-Reactive Protein 0.5 Total Protein 7.3 Albumin 5.2 H Globulin 2.1 Albumin/Globulin Ratio 2.5 H Urine Color Urine Appearance Urine pH Ur Specific [place] Urine Protein Urine Glucose (UA) Urine Ketones Urine Blood Urine Nitrate Urine Bilirubin Urine Urobilinogen Ur Leukocyte Esterase Urine WBC Ur Squamous Epith Cells Urine Bacteria Urine Opiates Screen Urine Methadone Screen Ur Barbituates Screen Ur Phencyclidine Scrn Ur Amphetamines Screen U Benzodiazepines Scrn Urine Cocaine Screen U Marijuana (THC) Screen HCV Ab DONNA w/Rflx PCR Qn Negative HIV Ag/Ab Combo Qual Negative DS: Diagnosis Discharge Diagnosis (1) Headache: Status: Acute Code(s): R51.9 - Headache, unspecified (2) Paresthesias: Status: Acute Code(s): R20.2 - Paresthesia of skin (3) Hypertensive urgency: Status: Acute Code(s): I16.0 - Hypertensive urgency (4) Former smoker: Status: Acute Code(s): Z87.891 - Personal history of nicotine dependence (5) TIA (transient ischemic attack): Status: Acute Code(s): G45.9 - Transient cerebral ischemic attack, unspecified Meds Home Medications and Allergies Home Medications ?Medication ?Instructions ?Recorded ?Confirmed ?Type irbesartan 75 mg tablet 75 mg PO DAILY 30 days #30 tabs 11/13/24 Rx New Prescriptions to Start Prescriptions: irbesartan Zen [place] Allergies Allergy/AdvReac Type Severity Reaction Status Date / Time Macrolide Antibiotics Allergy Severe Difficulty Verified 07/06/23 15:57 Breathing Discharge Plan Disposition Patient Disposition: Home, Self-Care Condition: Good Follow up Plan Follow up with: Babak Agustin MD [Primary Care Provider] - 11/19/24 12:00 pm Prescriptions/Medication Reconciliation: New irbesartan 75 mg Tablet 75 mg PO DAILY 30 Days Qty: 30 0RF Problem Reconciliation Problems Reviewed?: Yes Patient Discharge Instructions ACTIVITY: Continue current activity DIET: continue same diet Patient Instructions: DI for Transient Ischemic Attack Print Language: Cong[place]ese Providers Primary Care Provider: Babak Agustin Admit Provider: Zen Ov[place]o Attending Provider: Zen [place]
--- NOTE | 2024-11-14 10:47 | SW/DCPLANNER ---
Spoke with patient on the phone. Patient stated that she feels much better and that she is still layin in bed for the morning and took her morning medicine. Patient stated that she is aware of her upcoming appointment with her primary care provider. Patient stated that she was able to get her medicine from clinic pharmacy. Patient stated that she has no concerns or questions at this time. Nikolai Richter
== END 2024-11-13 15:57 | disposition home or self-care (01) ==
LOC: ER 22:15 → 2ND 22:35
PROVIDERS: Physician Assistant; Admitting Provider Internal Medicine Adolescent Medicine; Emergency Provider Student in an Organized Health Care Education/Training Program; PCP Family Medicine; Visit Provider Internal Medicine Adolescent Medicine
DX: G45.9 Transient cerebral ischemic attack, unspecified (principal); E66.9 Obesity, unspecified; M06.9 Rheumatoid arthritis, unspecified; F17.210 Nicotine dependence, cigarettes, uncomplicated; H54.415A Blindness right eye category 5, normal vision left eye; I10 Essential (primary) hypertension; Z79.899 Other long term (current) drug therapy; Z68.33 Body mass index [BMI] 33.0-33.9, adult
CPT/HCPCS: 70450; 70496; 70498; 70551; 80053; 80307; 81001; 84484; 85025; 85610; 85651; 85730; 86140; 86803; 87389; 93005; 97162; 97166; 99291; G0378; J0131; J0360; J0780; J1200; J1650; J1885; J7030; Q9967